=== PATIENT | female | born 1995 | race Two or more races ===

== ENCOUNTER 2017-01-09 16:43 | Emergency (ER) | payer OTHER ==
[~2017-01-09] VITALS: Ht 167.6 cm; Wt 68.0 kg
[2017-01-09 17:10] VITALS: BP 137/77
== END 2017-01-09 18:46 | disposition home or self-care (01) ==
LOC: ER 16:45
DX: L03.116 Cellulitis of left lower limb (principal)
CPT/HCPCS: 99283; A4606; Z7610